=== PATIENT | male | born 1960 | race Caucasian/White ===

== ENCOUNTER 2016-11-07 13:36 | Emergency (ER) | payer MEDICAID ==
[2016-11-07 14:07] VITALS: BMI 25.2
[2016-11-07 14:08] VITALS: TEMP 97.6
[2016-11-07 14:25] LABS: AUTOMATED BASOPHIL 0.6 % (0-2); AUTOMATED EOSINOPHIL 1.2 % (0-5); AUTOMATED LYMPH 29.3 % (17-44); AUTOMATED MONOCYTE 10.5 % (3-10); AUTOMATED NEUTROPHIL 58.4 % (45-76); MPV 7.7 fL (7.4-10.4)
[2016-11-07 14:34] LABS: BLOOD UREA NITROGEN 10 MG/DL (9-20); CALC CORRECTED 8.9 MG/DL (8.4-10.2); CALCIUM 8.8 MG/DL (8.4-10.2); CALCULATED OSMOLALITY 265 MOs/Kg (270-290); CHLORIDE 104 mEq/L (98-107); GLUCOSE 93 MG/DL (70-99); SODIUM LEVEL 138 mEq/L (137-146); TOTAL PROTEIN 6.9 G/DL (6.3-8.2)
[2016-11-07 14:36] LABS: PARTIAL THROMB. TIME 26.7 SEC (22-35); PT-INR 1.1
--- NOTE | 2016-11-07 14:37 | EDPRACDOC ---
- General Information Chief Complaint: Chest Pain Stated Complaint: CHEST PAIN X 3 MONTHS Information Source: Patient Mode of Arrival: Car Home Medications: Home Medications Pantoprazole Sodium [Protonix] 40 mg PO DAILY PRN 11/22/14 Hydrocodone Bit/Acetaminophen [Hydrocodon-Acetaminophen 5-325] 1 tab PO BID PRN 11/07/16 Meloxicam [Mobic] 7.5 mg PO BID PRN 11/07/16 Allergies/Adverse Reactions: Allergies Allergy/AdvReac Type Severity Reaction Status Date / Time No Known Allergies Allergy Verified 11/07/16 14:07 - History of Present Illness Onset: 3 MONTHS HPI: C/o intermittent left side CP x 3 months. Pain feels like a pinch, random onset lasting 3-4 mins, no radiation. Pain is not exertional, not related to eating. Denies assoc sob. denies fever, cough, sore throat, change in urine or BM. Med hx acid reflux. Prior smoker, POS fam hx of cardiac dz, Dad and mom from [place] age 75. Chest Pain Location: Reports: Left Chest Pain Radiation: Reports: None Symptoms Occur: Reports: Suddenly, Other (random) Cardiac Risk Factors: Reports: Smoker (former), Family History Cardiac History of: Reports: None PE Risk Factors: Reports: None Medications within 24 Hours: Reports: None Prehospital Care: Reports: None Pain Came On: Reports: Suddenly Pain Status: Resolved Pain Description: Reports: Other (pinching) Pain Severity: Mild Pain Worsens With: Reports: Other (unknown) Pain Improves With: Reports: Nothing Associated Signs and Symptoms: Reports: Palpitations ED Past Medical History - History Reviewed Yes Nurses notes reviewed and agree except as marked - Patient Medical History GI/ History: Reports: Gastroesophageal Reflux - Social Medical History Smoking Status: Former smoker EDM Review of Systems - Review of Systems ROS Negative Except as Marked: Yes All systems reviewed and were negative except as marked Cardiovascular: Chest Pain, Palpitations - Physical Exam Constitutional: Alert Oriented to: Time, Person, Place Last recorded Vital Signs: Last Vital Signs Temp 97.6 F 11/07/16 14:07 Pulse 71 11/07/16 14:07 Resp 18 11/07/16 14:07 BP 127/85 11/07/16 14:07 Pulse Ox 97 11/07/16 14:07 Oxygen Pulse Oxygen Saturation 97 O2 Device Oxygen Flow Rate Fraction of Inspired Oxygen ( FIO2) - HEENT Head: Normal Eye Exam: negative: Conjunctival Injection, Scleral Icterus Oropharynx: negative: Drooling TMJ: Normal Nose: No Symptoms Reported Neck: Normal - Respiratory/Cardiovascular Respiratory: Normal - CTA Cardiovascular: Normal - GI Tenderness: Non tender - Musculoskeletal Back: Normal Extremities: Normal - Integumentary Skin: Normal - Neurologic Mood Description: Normal Thought: Coherent ED Chest Pain Exam - Respiratory/Cardiovascular Respiratory: Normal - CTA Cardiovascular/Chest: Normal Radial Pulse: Normal Pedal Pulse: Normal Edema: negative: 1+, 2+, 3+, 4+, 5, 6 Chest Palpation: Normal - Action Patient received Aspirin within last 24 hours?: No ASA given in the ED: No - Results 11/07/16 14:10 11/07/16 14:10 WBC 4.5 xk/uL (3.8-10.8) 11/07/16 14:10 RBC 4.68 xM/uL (4.70-6.10) L 11/07/16 14:10 Hgb 15.0 g/dL (14.0-18.0) 11/07/16 14:10 Hct 44.1 % (42-52) 11/07/16 14:10 MCV 94 fL (80-94) 11/07/16 14:10 MCH 31.9 pg (27-32) 11/07/16 14:10 MCHC 33.9 g/dl (33-36) 11/07/16 14:10 RDW 13.4 % (11.5-14.5) 11/07/16 14:10 Plt Count 231 xk/uL (130-400) 11/07/16 14:10 MPV 7.7 fL (7.4-10.4) 11/07/16 14:10 Neut % (Auto) 58.4 % (45-76) 11/07/16 14:10 Lymph % (Auto) 29.3 % (17-44) 11/07/16 14:10 [place] % (Auto) 10.5 % (3-10) H 11/07/16 14:10 Eos % (Auto) 1.2 % (0-5) 11/07/16 14:10 Baso % (Auto) 0.6 % (0-2) 11/07/16 14:10 Absolute Neuts (auto) 2.61 xk/uL (1.7-8.2) 11/07/16 14:10 Absolute Lymphs (auto) 1.31 xk/uL (0.65-4.75) 11/07/16 14:10 Lab Results 11/07/16 14:10 WBC 4.5 RBC 4.68 L Hgb 15.0 Hct 44.1 MCV 94 MCH 31.9 MCHC 33.9 RDW 13.4 Plt Count 231 MPV 7.7 Neut % (Auto) 58.4 Lymph % (Auto) 29.3 [place] % (Auto) 10.5 H Eos % (Auto) 1.2 Baso % (Auto) 0.6 Absolute Neuts (auto) 2.61 Absolute Lymphs (auto) 1.31 Laboratory Results - last 24 hr 11/07/16 14:10 WBC 4.5 RBC 4.68 L Hgb 15.0 Hct 44.1 MCV 94 MCH 31.9 MCHC 33.9 RDW 13.4 Plt Count 231 MPV 7.7 Neut % (Auto) 58.4 Lymph % (Auto) 29.3 [place] % (Auto) 10.5 H Eos % (Auto) 1.2 Baso % (Auto) 0.6 Absolute Neuts (auto) 2.61 Absolute Lymphs (auto) 1.31 Laboratory Results 11/07/16 14:10 - EKG EKG #1 EKG Time: 14:23 -: Yes EKG interpreted by me Rate: bpm: 64 Rhythm: NSR ST: Normal - Diagnostic Imaging Chest Image interpreted by: Radiologist EXAM: PORTABLE CHEST 1 VIEW COMPARISON: 01/08/2016 . FINDINGS: Mediastinum hilar structures normal. Lungs are clear. Cardiomegaly with normal pulmonary vascularity. No pleural effusion or pneumothorax. No acute bony abnormality . IMPRESSION: Stable mild cardiomegaly. No CHF. No acute pulmonary disease. Electronically Signed By: Dean Paris On: 11/07/2016 14:56 Decision Time to Discharge: 18:13 - Departure Disposition: Home Condition: Stable Final Diagnosis: Atypical chest pain Instructions: Chest Pain (ED), Chest Wall Pain Education/Counseling Given To: Patient Education/Counseling Given Regarding: Diagnosis, Treatment, Prognosis, Follow Up Referrals: Marianela Mcgee MD [Staff Physician] - One Week Heraclio Ceja MD [Staff Physician] - One Week Additional Instructions: Follow up with primary care and hat model. The name of one has been provided for you, Dr Ceja. Return to ED for any new or worsening symptoms.
--- NOTE | 2016-11-07 14:59 | DIRPT ---
CLINICAL DATA: Chest pain. EXAM: PORTABLE CHEST 1 VIEW COMPARISON: 01/08/2016 . FINDINGS: Mediastinum hilar structures normal. Lungs are clear. Cardiomegaly with normal pulmonary vascularity. No pleural effusion or pneumothorax. No acute bony abnormality . IMPRESSION: Stable mild cardiomegaly. No CHF. No acute pulmonary disease. Electronically Signed By: Dean Paris On: 11/07/2016 14:56
[2016-11-07 18:58] VITALS: BP 134/86; PULSE 92
== END 2016-11-07 19:00 | disposition home or self-care (01) ==
LOC: ED 13:36
DX: R07.89 Other chest pain (principal); R06.02 Shortness of breath
CPT/HCPCS: 36415; 71010; 80053; 83880; 84484; 85025; 85610; 85730; 93005; 99284